=== PATIENT | female | born 1930 | race Caucasian/White ===

== ENCOUNTER 2017-08-04 05:10 | Emergency (ER) | payer MEDICARE ==
[~2017-08-04] VITALS: Ht 157.5 cm; Wt 67.2 kg
[~2017-08-04 05:10] MED LIST: ASP325TEC PO; DLT120CCR PO; DLT240CCR; DONE10TA41 PO; GLPZ5TCR; IBP200T PO; MULT-963 PO; NITR-65 PO; OLME40TA14; SIME80TA6 PO
--- OUTSIDE RECORDS SUMMARY | 2017-08-04 05:14 | XMS REPORT | Continuity of Care Document ---
Author Author [facility] Organization [facility] Address Unknown Phone Unavailable Allergies Medications Problems Date Dx Coded Attending Type Code Diagnosis Diagnosed By 07/15/2014 VAZQUEZ SERNA MD Ot 338.18 07/15/2014 VAZQUEZ SERNA MD Ot 550.90 07/15/2014 VAZQUEZ SERNA MD Ot 562.10 07/15/2014 VAZQUEZ SERNA MD Ot 715.35 07/15/2014 VAZQUEZ SERNA MD Ot 721.3 Procedures Results Encounters ACCT No. Visit Date/Time Discharge Status Pt. Type Provider Facility Loc./Unit Complaint [id number] 06/14/2014 13:06:00 2013 23:59:59 CLS Outpatient VAZQUEZ SERNA MD [facility] RAD [id number] 04/07/2013 10:47:00 2012 23:59:59 CLS Outpatient [id number] 03/05/2013 20:59:00 2012 00:17:00 DIS Emergency [id number] 01/05/2013 23:52:00 2012 10:00:00 DIS Inpatient
--- NOTE | 2017-08-04 05:29 | ED Fall/Injury ---
General Chief Complaint: Trauma-Non Activation Stated Complaint: FALL Source: EMS, longterm records, old records Exam Limitations: other (PT IS NOT TALKING) History of Present Illness Time seen by provider: 05:08 Initial Comments PT ARRIVES VIA EMS FROM [facility]--NO IMMOBILIZATION OR CERVICAL COLLAR PT ALLEGEDLY HAD AN UNWITNESSED FALL--FOUND ON FLOOR PRIOR TO ARRIVAL. IS UNKNOWN HOW LONG SHE HAD BEEN THERE EMS REPORT THAT PT WAS SITTING IN WHEELCHAIR, EATING CANDY ON THEIR ARRIVAL AT THE SCENE --NURSING STAFF WITH PT AT THE TIME PT WITH LACERATION AND 2 HEMATOMAS TO RIGHT FOREHEAD/FRONTAL AREA ACCUCHECK 147 BY EMS PT IS NOT TALKING, DOES OPEN EYES ON COMMAND, OTHERWISE IS NOT REALLY FOLLOWING ANY OTHER COMMANDS PT SHAKES HEAD NO TO A FEW QUESTIONS, OR DOES NOT RESPOND AT ALL TO QUESTIONS WHEN ASKED IF SHE HURTS ANYWHERE, IF SHE KNOWS WHY SHE IS HERE OR IF SHE KNOWS WHERE SHE IS, SHE NODS HER HEAD NO. OTHERWISE DOES NOT RESPOND TO ANY QUESTIONS. PT WITH DEMENTIA AND BASELINE IS UNKNOWN PCP: Allergies and Home Medications Allergies Coded Allergies: Penicillins (Unverified Allergy, Mild, 05/24/08) Uncoded Allergies: PCN (Allergy, Unknown, 06/22/10) Home Medications Aspirin 325 Mg Tabec, 325 MG PO DAILY, (Reported) Diltiazem Hcl 120 Mg Cap.sr.24h, 120 MG PO HS, (Reported) DO NOT CRUSH Donepezil Hcl 10 Mg Tablet, 10 MG PO HS, (Reported) Ibuprofen 200 Mg Tab, 200 MG PO Q4H PRN, (Reported) Nitrofurantoin/Nitrofuran Mac 100 Mg Capsule, 1 EACH PO BID for 5 Days Prescribed by: FLORES SEGURA on 03/06/13 000 Constitutional: other (UNABLE TO OBTAIN FROM PT) Skin: other (PT WITH MULTIPLE SORES/SCABBED ULCERATIONS TO FACE, FOREARMS, AND NECK/UPPER CHEST AREA--REPORTEDLY FROM PT CONSTANTLY PICKING AT HERSELF. HAS BANDAGE ON RIGHT FOREARM DUE TO THIS PROBLEM. ) Past Sepehdc-Xcvtxq-Xvdpld Hx Patient Social History Alcohol Use: Denies Use Recreational Drug Use: No Smoking Status: Never a Smoker 2nd Hand Smoke Exposure: No Recent Hopitalizations: No Immunizations Up To Date Tetanus Booster (TDap): Less than 5yrs Date of Pneumonia Vaccine: Jun 01, 2004 Seasonal Allergies Seasonal Allergies: Yes Surgeries History of Surgeries: Yes (REMOVAL OF SKIN CANCER) Respiratory History of Respiratory Disorde: No Cardiovascular History of Cardiac Disorders: Yes (CHF) Cardiac Disorders: Atrial Fibrillation, Hypertension Neurological History of Neurological Disord: Yes Neurological Disorders: Dementia, Neuropathy Reproductive System Hx Reproductive Disorders: No Sexually Transmitted Disease: No HIV/AIDS: No Gastrointestinal History of Gastrointestinal Di: Yes Gastrointestinal Disorders: Gastroesophageal Reflux, Chronic Constipation, Hiatal Hernia Musculoskeletal History of Musculoskeletal Dis: Yes (GENERALIZED WEAKNESS; CHRONIC PAIN ) Musculoskeletal Disorders: Arthritis Endocrine History of Endocrine Disorders: Yes Endocrine Disorders: Diabetes, Non-Insulin dep HEENT History of HEENT Disorders: Yes Hearing Impairment: Hard of Hearing Cancer History of Cancer: Yes (lesion on left cheek removed) Cancer: Skin Psychosocial History of Psychiatric Problem: Yes Behavioral Health Disorders: Sleep Difficulties Integumentary History of Skin or Integumenta: Yes (SKIN PICKING ) Blood Transfusions History of Blood Disorders: No Physical Exam Vital Signs Vital Sign - Last 12Hours 08/04/17 05:10 Temp 96.2 Pulse 67 Resp 16 B/P (MAP) 112/52 (72) Pulse Ox 96 O2 Delivery Room Air Capillary Refill : General Appearance: WD/WN, no apparent distress, other (RESTING QUIETLY, WITH EYES CLOSED. MENTATION NOTED ABOVE) HEENT: PERRL/EOMI, other (MILD CONJUNCTIVAL INFLAMMATION ON RIGHT. NO HYPHEMA. RIGHT PERIORBITAL HEMATOMA. SCABBED WOUNDS/ULCERATIONS TO FACE--LEFT SIDE OF NOSE AND NEAR INNER ASPECT OF RIGHT EYE. VERY POOR DENTITION--MULTIPLE MISSING TEETH AND FEW REMAINING TEETH WITH EXTENSIVE DECAY. NO OBVIOUS INTRA-ORAL INJURY . ) Cardiovascular: no murmur, irregularly irregular Respiratory: chest non-tender, normal breath sounds, no respiratory distress Peripheral Pulses: 1+ Dorsalis Pedis (R), 1+ Left Dors-Pedis (L) Gastrointestinal: normal bowel sounds, non tender, soft Extremities: pedal edema (2-3 + EDEMA--HAS ELLIOT HOSE ON, BUT ARE BUNCHED UP AROUND HER ANKLES. PT GRIMACES AND WITHDRAWS ON PALPATION OF LEFT HIP. HAS SLIGHT GRIMACE ON PALPATION OF RIGHT HIP. NO DEFORMITY, NO SHORTENING OR ROTATION. NO APPARENT ARM TENDERNESS OR DEFORMITY. ) Neurologic/Psychiatric: other (MENTATION NOTED ABOVE. MOVES ALL EXTREMITIES. ) Skin: normal color, warm/dry, other ( ABOVE. SUPERFICIAL ABRASION TO RIGHT FRONTAL AREA AT HAIRLINE, NO ACTIVE BLEEDING) [place] Coma Score Best Eye Response: (3) Open to Voice Best Verbal Response: (1) No Verbal Response (BUT SHAKES HEAD "NO" ) Best Motor Response: (4) Withdraws to Pain Progress/Results/Core Measures Results/Orders My Orders Orders - DAVIDA SPENCE DO Ct Head/Face/Cervical Wo (08/04/17 05:15) Chest 1 View, Ap/Pa Only (08/04/17 05:15) Pelvis/Gonzalo Hips 5> Views (08/04/17 05:15) Cervical Collar (08/04/17 05:15) Dipht,Pertuss(Acell),Tet Adult (Boostrix (08/04/17 05:30) Vital Signs/I&O Vital Sign - Last 12Hours 08/04/17 05:10 Temp 96.2 Pulse 67 Resp 16 B/P (MAP) 112/52 (72) Pulse Ox 96 O2 Delivery Room Air Progress Note : Progress Note CERVICAL COLLAR IMMEDIATELY PLACED ON PT ON ARRIVAL. C-COLLAR REMOVED ON RECEIVING CT AND XRAY REPORTS. PT IS MUCH MORE AWAKE, ALERT AND TALKATIVE ON RETURN FROM CT. PT'S SPEECH IS CLEAR, AND ABLE TO ANSWER QUESTIONS. SUSPECT SHE IS AT NORMAL BASELINE. PT CONFUSED TO PLACE, TIME AND SITUATION, BUT IS SMILING. PT DENIES PAIN ANYWHERE. PT ABLE TO FOLLOW SIMPLE COMMANDS Diagnostic Imaging Comments XRAYS PELVIS AND BILATERAL HIPS--NO ACUTE PROCESS CXR--NO ACUTE PROCESS CT HEAD/CERVICAL SPINE/MAXILLOFACIALS--NO ACUTE PROCESS EXCEPT FOR FRONTAL SCALP HEMATOMA, DEGENERATIVE/SENESCENT CHANGES ALL PER RADIOLOGIST REPORTS @ 0614 Reviewed: Reviewed by Me Departure Impression Impression: Primary Impression: Unwitnessed fall Additional Impressions: HEAD INJURY WITH UNKNOWN LOSS OF CONSCIOUSNESS Abrasion of periorbital region of face FACIAL AND PERIORBITAL CONTUSIONS AND HEMATOMA CERVICAL SPINE STRAIN Dementia Disposition: 03 XFER SNF Condition: Stable Departure-Patient Inst. Referrals: JEWEL FINK MD Patient Instructions: Black Eye, Cervical Muscle Strain (DC), Closed Head Injury (DC), Preventing Falls in the Older Adult Add. Discharge Instructions: ICE TO AFFECTED AREAS AT 20 MINUTE INTERVALS ALL ACTIVITIES WITH ASSIST CONTINUE CURRENT MEDICATIONS FOLLOW UP WITH DR. FINK NEEDED All discharge instructions reviewed with patient and/or family. Voiced understanding. Images Full Body/Extremities Full Progress SEE ADDITIONAL PAPER DIAGRAMS FOR IMAGES DAVIDA SPENCE DO Aug 04, 2017 05:29
[2017-08-04] MEDS ORDERED: TETANUS,DIPTH,PERTUSS P/F (BOOSTRIX) 0.5 ML VIAL IM ONE (05:30)
--- NOTE | 2017-08-04 06:04 | Diagnostic Imaging Report ---
INDICATION: Fall with pelvic pain. 0601 hours. Comparison is made to study of 10/18/2011. AP view of the pelvis is obtained with AP and lateral coned views of both hips. Degenerative changes are again noted in the lower lumbar spine as well as sacroiliac joints and pubic symphysis. There is no evidence of an acute fracture or malalignment. Hip joints are intact. There is no abnormal lytic or sclerotic focus. IMPRESSION: No acute abnormalities identified. Dictated by: Dictated on workstation # [id number]
--- NOTE | 2017-08-04 06:09 | Diagnostic Imaging Report ---
INDICATION: Fall. 0600 hours FINDINGS: Since 01/05/2013, there has been an overall increase in size of heart with pulmonary vascularity at the upper limits of normal. There is no evidence of pneumothorax. Rounded density projected over the lower right hemithorax is likely due to diaphragmatic eventration. No pneumothorax or focal consolidation is identified. There are surgical clips in region of the gallbladder fossa. IMPRESSION: Generalized cardiomegaly and pulmonary vascularity at the upper limits of normal. Dictated by: Dictated on workstation # [id number]
--- NOTE | 2017-08-04 06:11 | Diagnostic Imaging Report ---
PROCEDURE: CT head, face, and cervical spine without contrast. TECHNIQUE: Multiple contiguous axial images were obtained through the head, neck, and facial bones without the use of intravenous contrast. Sagittal and coronal reformations through the cervical spine and facial bones were also performed. INDICATION: Fall with head and facial lacerations and swelling as well as contusions. CT head: Multiple contiguous axial CT images of the head are obtained. No previous studies available at this time for comparison. Ventricles and sulci are diffusely prominent. No abnormal mass effect or shift of midline structures is identified. There is no evidence of acute intracranial hemorrhage. Calvarium is intact although there is prominent contusion in the right frontal scalp region. There is opacification of the left sphenoid sinus. No paranasal sinus air-fluid level is identified. IMPRESSION: Prominent right frontal scalp contusion and senescent findings in the brain. There is no CT evidence of acute intracranial abnormality. CT cervical spine: There is moderate narrowing of C4-5, C5-6 and C6-7 disc spaces with mild degenerative anterolisthesis of C4 on C5. There is diffuse degenerative facet arthropathy without evidence of acute cervical spinal abnormality. There is focal lucency within the superior endplate of C7 which may be due to Schmorl's node or degenerative change. No acute cervical spinal fracture is identified. Note is made of probable lipoma present within the right sternocleidomastoid muscle. IMPRESSION: Degenerative findings without evidence of acute cervical spinal abnormality. Maxillofacial CT: Prominent right frontal scalp contusion is noted without evidence of underlying fracture. The globes are intact. There is no evidence of retrobulbar hematoma. There is opacification of the left sphenoid sinus which may be chronic in nature. IMPRESSION: No acute fracture or malalignment is identified. Right frontal scalp hematoma is identified. Note is made of numerous dental caries and loss of multiple teeth. Dictated by: Dictated on workstation # [id number]
[2017-08-04 07:12] VITALS: BP 104/73
== END 2017-08-04 07:12 | disposition home or self-care (01) ==
LOC: EDUNIT# 05:10 → ER 05:11
DX: S06.9X9A Unspecified intracranial injury with loss of consciousness of unspecified duration, initial encounter (principal); S16.1XXA Strain of muscle, fascia and tendon at neck level, initial encounter; S05.11XA Contusion of eyeball and orbital tissues, right eye, initial encounter; S00.33XA Contusion of nose, initial encounter; F03.90 Unspecified dementia, unspecified severity, without behavioral disturbance, psychotic disturbance, mood disturbance, and anxiety; E11.40 Type 2 diabetes mellitus with diabetic neuropathy, unspecified; K21.9 Gastro-esophageal reflux disease without esophagitis; I50.9 Heart failure, unspecified; I48.91 Unspecified atrial fibrillation; Z85.828 Personal history of other malignant neoplasm of skin; Z87.19 Personal history of other diseases of the digestive system; W19.XXXA Unspecified fall, initial encounter
CPT/HCPCS: 70450; 70486; 71010; 72125; 73523; 90715; 99283

== ENCOUNTER → 2018-07-30 | Outpatient (CLI) | payer MEDICARE, MEDICAID | LOC: WOUNDCARE 12:45 | PROVIDERS: ATTEND Orthopaedic Surgery Hand Surgery | DX: E11.622 Type 2 diabetes mellitus with other skin ulcer (principal); L98.499 Non-pressure chronic ulcer of skin of other sites with unspecified severity; F03.90 Unspecified dementia, unspecified severity, without behavioral disturbance, psychotic disturbance, mood disturbance, and anxiety | CPT/HCPCS: 99213 ==